=== PATIENT | female | born 1975 | race African-American/Black ===

== ENCOUNTER 2016-12-01 04:48 | Inpatient (IN) | payer OTHER ==
[~2016-12-01] VITALS: Ht 167.6 cm; Wt 55.0 kg
--- NOTE | ~2016-12-01 | EKG ---
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: [id number] : 1975 Requested By: Jacey Pacheco Order Number: [id number] MD: Venkat Bassett Measurements Intervals [place] Rate: 115 P: 80 DC: 173 QRS: 77 QRSD: 71 T: 23 QT: 328 QTc: 454 Interpretive Statements Sinus tachycardia Right atrial enlargement Compared to ECG 04/07/2016 17:50:54 Atrial abnormality now present ST (T wave) deviation no longer present Prolonged QT interval no longer present Electronically Signed On 12-01-2016 17:56:24 CDT by Venkat Bassett [email or web address] <ELECTRONICALLY SIGNED> By: Venkat Bassett MD 12/01/16 1756 4 4 Venkat Bassett MD /EPI
--- NOTE | ~2016-12-01 | S ---
[facility] [place] [address] SURGICAL PATH RPT PROCEDURE Name: MASSILE PONCE Room #: 423-1 ADM IN M.R.#: [id number] Admission: 12/04/16 Date of : 77 Discharge: Report #: [id number] Path Case #: [id number] PATHOLOGY REPORT COLLECTION DATE: 12/03/2016 RECEIVED DATE: 12/03/2016 SUBMITTING PHYS: Dr. Babs Hawkins OTHER PHYS: Dr. Alex Meier SPECIMEN(S) RECEIVED: A.Random gastritis bx B.Focal bx of gastritis in fundus * * * * * * * * * * * * FINAL DIAGNOSIS: A. Gastric biopsy "random gastritis biopsy": - Mild chronic reactive gastropathy with mild chronic inflammation. - There is no evidence of acute cryptitis, granulomas, adenomatous change or malignancy. - The immunoperoxidase stain for Helicobacter pylori is negative. B. Gastric biopsy "focal biopsy of gastritis": - Mild chronic reactive gastropathy with focal mild chronic inflammation. - There is no evidence of acute cryptitis, granulomas, adenomatous change or malignancy. - The immunoperoxidase stain for Helicobacter pylori is negative. PATHOLOGIST: Guido Perez M.D. REPORT ELECTRONICALLY SIGNED BY: Guido Perez M.D. DATE/TIME: 12/05/2016 13:04 * * * * * * * * * * * * GROSS PATHOLOGY: A. Received in formalin labeled "Massiel Ponce, random gastric biopsies R/O H. pylori," are three segments of white soft tissue measuring 0.8 x 0.7 x 0.1 cm in aggregate dimensions and ranging from 0.4 to 0.5 cm in maximum dimension. The specimen is submitted entirely in cassette A1. B. Received in formalin labeled "Massiel Ponce, focal biopsy gastritis infectious," are two segments of white soft tissue measuring 0.4 x 0.4 x 0.1 cm in aggregate dimensions and ranging from 0.3 to 0.4 cm in maximum dimension. The specimen is submitted entirely in cassette B1. (CAA; 12/04/2016) [address] [address] SURGICAL PATH RPT PROCEDURE Name: MASSIEL PONCE Room #: 423-1 ADM IN .R.#: [id number] Admission: 12/04/16 Date of : 77 Discharge: Report #: [id number] Path Case #: [id number] CLINICAL HISTORY: Odynophagia INITIAL CPT CODE(S): A; 22601, 33263 B; 90937, 45668 Professional services performed by [facility] at [address] , [place] [address] Technical services performed by [facility] at [address] [place] [address], [address] [address]. [facility] [address] [address] PHONE: [phone] DIRECTOR: Alex Sanchez M.D. * * * END OF REPORT * * *
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
[~2016-12-01 04:48] MED LIST: ALLEGRA60 MG; APAP/CODEI12 MG/5 M1; CLEOCIN HCL150 MG PO; COLACE 100 MG100 MG; HYDROCODONE-AP1 EAC6 PO; IBUPROFEN 800800 M1; IRON325 PO; IROSPAN 24/6 T1 EACH; LORTAB 5 MG/5001 TA1 PO; NAPROSYN500 MG PO; NOHOMEMEDICATIONS; NORCO 5-325 TA1 EACH PO; PROGESTERONE100 MG PO; TRINATE TABLET1 TAB PO; ULTRAM 50MG TAB50 MG PO; ZOFRAN4 MG PO; ZPAK
[2016-12-01 04:55] VITALS: BP 118/76
[2016-12-01] MEDS ORDERED: ALLEGRA ALLERGY60 MG PO (05:30)
[2016-12-01] MEDS ORDERED: ZYRTEC10 M5 PO (05:31)
[2016-12-01 06:09] LABS: BASOPHILS 0.5 % (0.0-2.0); HEMATOCRIT 42.3 % (37.0-47.0); HEMOGLOBIN 13.8 gm/dL (12.0-15.0); LYMPHOCYTES 12.7 % (24.0-44.0); MCH 33.3 pg (26.0-34.0); MCHC 32.5 g/dL (28.0-37.0); MCV 102.5 fL (80.0-100.0); MONOCYTES 8.4 % (1.0-8.0); PLATELET COUNT 270 thou/uL (150-400); POLYS 78.4 % (36.0-66.0); RBC 4.13 mil/uL (4.20-5.00); WBC 8.9 thou/uL (4.0-11.0)
[2016-12-01 06:10] LABS: CALCIUM 9.7 mg/dL (8.5-10.1); CREATININE 0.8 mg/dL (0.6-1.0); POTASSIUM 5.3 mmol/L (3.5-5.1)
[2016-12-01 06:20] LABS: MANUAL DIFF NO
[2016-12-01 08:48] LABS: ABG SAMPLE TYPE ARTERIAL; BE(vivo) -19.5 mmol/L (-2 to +3); HCO3 6.4 mmol/L (22.0-26.0); O2(CT) 19.1 mL/dL (15.0-23.0); O2Hb 97.1 % (92.0-98.0); PO2 123.6 mmHg (80.0-100.0); sO2 97.8 % (92.0-98.0); tCO2 6.9 mmol/L (24.0-30.0)
[2016-12-01 08:49] LABS: LACTATE 9.58 mmol/L (0.5-2.0); PCO2 17.1 mmHg (35.0-45.0); STICK SITE R.RADIAL; pH 7.189 (7.360-7.450)
[2016-12-01 10:01] VITALS: BP 106/73
[2016-12-01 10:05] VITALS: BP 139/90
[2016-12-01 14:40] LABS: ABG SAMPLE TYPE ARTERIAL; BE(vivo) -8.4 mmol/L (-2 to +3); HCO3 15.3 mmol/L (22.0-26.0); O2(CT) 18.2 mL/dL (15.0-23.0); O2Hb 96.6 % (92.0-98.0); PCO2 27.3 mmHg (35.0-45.0); pH 7.367 (7.360-7.450); sO2 97.3 % (92.0-98.0); tCO2 16.2 mmol/L (24.0-30.0)
[2016-12-01 14:41] LABS: ABG COMMENT NO COMPLICATIONS; STICK SITE L.RADIAL
[2016-12-01 16:27] VITALS: BP 112/73
[2016-12-01 20:00] VITALS: BP 124/87
[2016-12-02 03:32] LABS: URINE BILIRUBIN 2+ (Negative); URINE BLOOD 3+ (Negative); URINE COLOR YELLOW; URINE GLUCOSE-RANDOM* NEGATIVE (Negative); URINE KETONES 2+ (Negative); URINE NITRITE NEGATIVE (Negative); URINE PROTEIN (DIPSTICK) 2+ (Negative); URINE SPECIFIC GRAVITY 1.025 (1.003-1.035); URINE UROBILINOGEN 0.2 E.U./dl (0.2-1.0)
[2016-12-02 03:34] LABS: ICTOTEST (BILI CONFIRMATORY) Positive (Negative)
[2016-12-02 03:43] LABS: AMP/METHAMP Negative (Negative); BARBITURATES Negative (Negative); BENZODIAZEPINES Negative (Negative); COCAINE Negative (Negative); METHADONE Negative (Negative); OPIATES POSITIVE (Negative); PCP Negative (Negative); THC Negative (Negative)
[2016-12-02 03:46] LABS: CASTS None Seen /LPF (None Seen); SQUAMOUS >10 Many /LPF (0-3)
[2016-12-02 03:47] LABS: URINE RBC 3-10 Few /HPF (0-2); URINE WBC 0-5 Rare /HPF (0-5)
[2016-12-02 03:48] LABS: BACTERIA 1-9 Few /HPF (None Seen); CRYSTALS None Seen /LPF (None Seen)
[2016-12-02 04:11] LABS: GLYCOHEMOGLOBIN (HGB A1C) 4.7 % (4.8-5.6)
[2016-12-02 07:40] VITALS: BP 132/96
[2016-12-02 10:44] LABS: ALBUMIN 3.5 g/dL (3.4-5.0); CALCIUM 8.4 mg/dL (8.5-10.1); CREATININE 0.6 mg/dL (0.6-1.0); POTASSIUM 3.3 mmol/L (3.5-5.1); TOTAL BILIRUBIN 1.1 mg/dL (<0.1-1.0); TOTAL PROTEIN 7.3 g/dL (6.4-8.2)
[2016-12-02 15:43] VITALS: BP 129/93
[2016-12-02 20:00] VITALS: BP 132/98
[2016-12-03 04:31] VITALS: BP 113/87
[2016-12-03 05:50] LABS: HEMATOCRIT 33.3 % (37.0-47.0); MCH 32.9 pg (26.0-34.0); MCHC 33.8 g/dL (28.0-37.0); RBC 3.43 mil/uL (4.20-5.00); RDW 13.6 % (10.5-14.5); WBC 4.6 thou/uL (4.0-11.0)
[2016-12-03 06:12] LABS: CREATININE 0.7 mg/dL (0.6-1.0); HEMOGLOBIN 11.3 gm/dL (12.0-15.0); MCV 97.2 fL (80.0-100.0); TOTAL BILIRUBIN 1.2 mg/dL (<0.1-1.0); TOTAL PROTEIN 6.6 g/dL (6.4-8.2)
[2016-12-03 06:20] LABS: POTASSIUM 2.6 mmol/L (3.5-5.1)
[2016-12-03 08:11] VITALS: BP 109/78
[2016-12-03 10:09] LABS: C-PEPTIDE 0.7 ng/mL (1.1-4.4); CORTISOL AM 12.3 ug/dL (6.2-19.4); INSULIN 7.4 uIU/mL (2.6-24.9)
[2016-12-03 15:51] VITALS: BP 129/93
[2016-12-03 17:10] LABS: HEPATITIS C VIRUS AB 0.2 (0.0-0.9)
[2016-12-03 19:22] VITALS: BP 130/94
[2016-12-04 04:25] VITALS: BP 116/87
[2016-12-04 06:32] LABS: ALBUMIN 2.6 g/dL (3.4-5.0); DIRECT BILIRUBIN 0.4 mg/dL (<0.1-0.3); TOTAL BILIRUBIN 1.1 mg/dL (<0.1-1.0)
[2016-12-04 08:28] VITALS: BP 105/75
[2016-12-04 09:19] LABS: HEMATOCRIT 29.9 % (37.0-47.0); MCHC 33.3 g/dL (28.0-37.0); MCV 98.9 fL (80.0-100.0); RBC 3.02 mil/uL (4.20-5.00); RDW 13.6 % (10.5-14.5); WBC 3.4 thou/uL (4.0-11.0)
[2016-12-04 09:30] LABS: ALBUMIN 2.7 g/dL (3.4-5.0); CALCIUM 7.8 mg/dL (8.5-10.1); CREATININE 0.6 mg/dL (0.6-1.0); POTASSIUM 3.2 mmol/L (3.5-5.1)
[2016-12-04 15:50] VITALS: BP 135/100
[2016-12-04 20:00] VITALS: BP 124/87
[2016-12-05 03:52] LABS: HEMATOCRIT 27.6 % (37.0-47.0); HEMOGLOBIN 9.4 gm/dL (12.0-15.0); MCHC 34.2 g/dL (28.0-37.0); MCV 96.5 fL (80.0-100.0); RBC 2.86 mil/uL (4.20-5.00); RDW 13.5 % (10.5-14.5); WBC 3.2 thou/uL (4.0-11.0)
[2016-12-05 04:06] LABS: ALBUMIN 2.5 g/dL (3.4-5.0); ALKALINE PHOSPHATASE 100 U/L (46-116); ANION GAP 6 mmol/L (7-16); BUN < 1 mg/dL (7-18); CALCIUM 7.7 mg/dL (8.5-10.1); CHLORIDE 106 mmol/L (98-107); CO2 27 mmol/L (21-32); CREATININE 0.6 mg/dL (0.6-1.0); GLUCOSE 105 mg/dL (74-106); SGOT 173 U/L (15-37); SGPT 74 U/L (30-65); SODIUM 139 mmol/L (136-145); TOTAL PROTEIN 5.7 g/dL (6.4-8.2)
[2016-12-05 04:22] LABS: POTASSIUM 2.6 mmol/L (3.5-5.1)
[2016-12-05 05:00] VITALS: BP 128/92
[2016-12-05 07:38] VITALS: BP 105/71
[2016-12-05 20:00] VITALS: BP 140/105
[2016-12-06 00:32] VITALS: BP 127/92
[2016-12-06 04:36] VITALS: BP 112/68
[2016-12-06 05:19] LABS: HEMATOCRIT 27.9 % (37.0-47.0); HEMOGLOBIN 9.6 gm/dL (12.0-15.0); MCH 33.1 pg (26.0-34.0); MCHC 34.4 g/dL (28.0-37.0); MCV 96.1 fL (80.0-100.0); RBC 2.9 mil/uL (4.20-5.00); RDW 13.5 % (10.5-14.5); WBC 3.5 thou/uL (4.0-11.0)
[2016-12-06 05:34] LABS: ALBUMIN 2.6 g/dL (3.4-5.0); CALCIUM 7.6 mg/dL (8.5-10.1); CREATININE 0.6 mg/dL (0.6-1.0); TOTAL BILIRUBIN 0.6 mg/dL (<0.1-1.0); TOTAL PROTEIN 5.9 g/dL (6.4-8.2)
[2016-12-06 08:00] VITALS: BP 131/96
[2016-12-06 17:54] VITALS: BP 125/95
[2016-12-06 18:50] LABS: MAGNESIUM 1.1 mg/dL (1.8-2.4); POTASSIUM 3.6 mmol/L (3.5-5.1)
[2016-12-06 19:57] VITALS: BP 120/81
[2016-12-07 07:41] LABS: HEMATOCRIT 27.6 % (37.0-47.0); HEMOGLOBIN 9.3 gm/dL (12.0-15.0); MCH 33.2 pg (26.0-34.0); MCHC 33.8 g/dL (28.0-37.0); MCV 98.2 fL (80.0-100.0); PLATELET COUNT 171 thou/uL (150-400); RBC 2.81 mil/uL (4.20-5.00); RDW 13.8 % (10.5-14.5); WBC 3.8 thou/uL (4.0-11.0)
[2016-12-07 07:44] LABS: MANUAL DIFF YES
[2016-12-07 07:57] LABS: ALBUMIN 2.5 g/dL (3.4-5.0); CALCIUM 8.1 mg/dL (8.5-10.1); CREATININE 0.6 mg/dL (0.6-1.0); POTASSIUM 3.5 mmol/L (3.5-5.1); TOTAL BILIRUBIN 0.5 mg/dL (<0.1-1.0); TOTAL PROTEIN 5.7 g/dL (6.4-8.2)
[2016-12-07 08:00] VITALS: BP 108/56
[2016-12-07 08:05] LABS: ABSOLUTE NEUTROPHILS 2.5 thou/uL (1.4-8.2); PLATELET ESTIMATE NORMAL; TOTAL CELL COUNT 100
[2016-12-07 17:50] VITALS: BP 149/100
[2016-12-07 19:59] VITALS: BP 112/85
[2016-12-08 04:48] VITALS: BP 115/83
[2016-12-08 05:13] VITALS: BP 126/65
[2016-12-08 05:13] LABS: ALBUMIN 2.5 g/dL (3.4-5.0); CREATININE 0.6 mg/dL (0.6-1.0); POTASSIUM 3.4 mmol/L (3.5-5.1); TOTAL BILIRUBIN 0.4 mg/dL (<0.1-1.0); TOTAL PROTEIN 5.9 g/dL (6.4-8.2)
[2016-12-08 08:47] VITALS: BP 136/93
[2016-12-08] MEDS ORDERED: PANTOPRAZOLE SO40 M1 PO (09:18)
[2016-12-08] MEDS ORDERED: HYDROCODONE-AP1 EAC6 PO (09:18)
[2016-12-08] MEDS ORDERED: VITAMIN B-1100 M2 PO (09:19)
[2016-12-08] MEDS ORDERED: FOLIC ACID 1 MG1 MG PO (09:19)
[2016-12-08 11:21] VITALS: BP 136/93
== END 2016-12-08 12:28 | disposition home or self-care (01) | DRG 377 ==
LOC: ER 04:48 → EROBS 08:48 → 4E 08:48
PROVIDERS: Emergency Medicine; Family Medicine; Hospitalist; Internal Medicine; Internal Medicine Endocrinology, Diabetes & Metabolism; Internal Medicine Gastroenterology; Nurse Practitioner; Nurse Practitioner Adult Health
PROC: 0DB68ZX Excision of Stomach, Via Natural or Artificial Opening Endoscopic, Diagnostic (ICD-10-PCS; principal; 2016-12-03)
DX: K29.71 Gastritis, unspecified, with bleeding (principal); K85.90 Acute pancreatitis without necrosis or infection, unspecified; G93.40 Encephalopathy, unspecified; K22.10 Ulcer of esophagus without bleeding; E87.2 Acidosis; R16.0 Hepatomegaly, not elsewhere classified; E16.2 Hypoglycemia, unspecified; E87.6 Hypokalemia; E83.42 Hypomagnesemia; D25.9 Leiomyoma of uterus, unspecified; F10.10 Alcohol abuse, uncomplicated; R07.9 Chest pain, unspecified; R79.89 Other specified abnormal findings of blood chemistry; K76.0 Fatty (change of) liver, not elsewhere classified; R13.10 Dysphagia, unspecified; Y90.0 Blood alcohol level of less than 20 mg/100 ml; Z79.899 Other long term (current) drug therapy; Z88.8 Allergy status to other drugs, medicaments and biological substances; Z80.3 Family history of malignant neoplasm of breast
CPT/HCPCS: 10183; 62110; 62900; 70005

== ENCOUNTER 2017-09-02 13:34 | Inpatient (IN) | payer OTHER ==
[2017-09-02] VITALS (9 sets, daily range): BP systolic 98–143; BP diastolic 57–101
[~2017-09-02] VITALS: Ht 165.1 cm; Wt 54.9 kg
--- NOTE | ~2017-09-02 | EKG ---
[address] [address] ELECTROCARDIOGRAM REPORT Name: MASSIEL DOMINGUEZ Room #: 437-P [facility] IN ..#: [id number] Admission: 09/02/17 Attend Phys: Balbir Merlos MD Discharge: 09/06/17 Date of : 77 Report #: [id number] THIS REPORT FOR: //name// [facility] Test Date: 2017-09-03 Test Time: 01:38:11 Pat Name: MASSIEL DOMINGUEZ Department: Room: [facility] Gender: F Neuropsychology Service Director: [email or web address] : 1975 Requested By: Teresa Bazan Order Number: [id number] MD: Stu Martinez Measurements Intervals [place] Rate: 117 P: 88 CA: 153 QRS: 75 QRSD: 71 T: 72 QT: 336 QTc: 469 Interpretive Statements Sinus tachycardia Probable anteroseptal infarct, old Prolonged QT interval Compared to ECG 12/01/2016 06:05:36 No significant change was found Electronically Signed On 09-06-2017 13:13:35 CDT by Stu Martinez [email or web address] <ELECTRONICALLY SIGNED> By: Stu Martinez MD, [facility] 09/06/17 1313 0138 0138 Stu Martinez MD, [facility] /EPI
--- NOTE | ~2017-09-02 | EKG ---
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 : 1975 Requested By: Scott Hollingsworth Order Number: [id number] MD: Stu Martinez Measurements Intervals [place] Rate: 100 P: 88 DC: 194 QRS: 73 QRSD: 81 T: 16 QT: 392 QTc: 506 Interpretive Statements Sinus tachycardia Anteroseptal infarct, old Nonspecific ST segment abnormality Compared to ECG 12/01/2016 06:05:36 no significant change was found Electronically Signed On 09-06-2017 13:05:03 CDT by Stu Martinez [email or web address] <ELECTRONICALLY SIGNED> By: Stu Martinez MD, [facility] 09/06/17 1305 1457 1457 Stu Martinez MD, [facility] /EPI
[~2017-09-02 13:34] MED LIST changes: +ALLEGRA ALLERGY60 MG PO; +FOLIC ACID 1 MG1 MG PO; +PANTOPRAZOLE SO40 M1 PO; +VITAMIN B-1100 M2 PO; +ZYRTEC10 M5 PO
[2017-09-02 14:19] LABS: URINE BILIRUBIN NEGATIVE (Negative); URINE BLOOD 3+ (Negative); URINE CLARITY CLEAR; URINE COLOR YELLOW; URINE GLUCOSE-RANDOM* NEGATIVE (Negative); URINE KETONES 2+ (Negative); URINE LEUKOCYTES-REFLEX NEGATIVE (Negative); URINE NITRITE-REFLEX NEGATIVE (Negative); URINE PROTEIN (DIPSTICK) 1+ (Negative); URINE SPECIFIC GRAVITY 1.025 (1.005-1.035); URINE UROBILINOGEN 0.2 E.U./dl (0.2-1.0)
[2017-09-02 14:25] LABS: AMP/METHAMP Negative (Negative); BARBITURATES Negative (Negative); BENZODIAZEPINES Negative (Negative); COCAINE Negative (Negative); METHADONE Negative (Negative); OPIATES Negative (Negative); PCP Negative (Negative)
[2017-09-02 14:34] LABS: CASTS None Seen /LPF (None Seen); CRYSTALS None Seen /LPF (None Seen); SQUAMOUS >10 Many /LPF (0-3)
[2017-09-02 14:35] LABS: URINE WBC-REFLEX 0-5 Rare /HPF (0-5)
[2017-09-02 14:36] LABS: BACTERIA-REFLEX 1-9 Few /HPF (None Seen); URINE RBC 3-10 Few /HPF (0-2)
[2017-09-02 14:57] LABS: HEMOGLOBIN 12.5 gm/dL (12.0-15.0); MCH 32.8 pg (26.0-34.0); MCHC 29.1 g/dL (28.0-37.0); MCV 112.9 fL (80.0-100.0); PLATELET COUNT 233 thou/uL (150-400); RBC 3.81 mil/uL (4.20-5.00); RDW 15.3 % (10.5-14.5); WBC 15.2 thou/uL (4.0-11.0)
[2017-09-02 15:09] LABS: CALCIUM 8.2 mg/dL (8.5-10.1); CREATININE 0.8 mg/dL (0.6-1.0); POTASSIUM 4.4 mmol/L (3.5-5.1)
[2017-09-02 15:15] LABS: ALBUMIN 3.8 g/dL (3.4-5.0); TOTAL BILIRUBIN 0.4 mg/dL (<0.1-1.0); TOTAL PROTEIN 8.9 g/dL (6.4-8.2)
[2017-09-02 15:28] LABS: ABSOLUTE NEUTROPHILS 11.1 thou/uL (1.4-8.2)
[2017-09-02 15:29] LABS: MACROCYTES 2+
[2017-09-02 15:59] LABS: BE(vivo) -31.8 mmol/L (-2 to +3); HCO3 3.7 mmol/L (22.0-26.0); PCO2 VENOUS 28.2 mmHg (41.0-51.0); PO2 VENOUS 64.2 mmHg (35.0-45.0)
[2017-09-02 20:17] LABS: INR 1.2
[2017-09-02 20:29] LABS: PHOSPHORUS 7.8 mg/dL (2.5-4.9)
[2017-09-02 20:55] LABS: FOLIC ACID 6.5 ng/mL (8.6-58.9)
[2017-09-02 21:42] LABS: AMYLASE 156 U/L (25-115); LIPASE 177 U/L (73-393)
[2017-09-03] VITALS (17 sets, daily range): BP systolic 88–107; BP diastolic 67–83
[2017-09-03 04:07] LABS: HEMOGLOBIN 9.7 gm/dL (12.0-15.0); MCH 34.2 pg (26.0-34.0); MCHC 33.5 g/dL (28.0-37.0); MCV 102.1 fL (80.0-100.0); RBC 2.84 mil/uL (4.20-5.00); RDW 13.6 % (10.5-14.5); WBC 6.2 thou/uL (4.0-11.0)
[2017-09-03 04:16] LABS: CALCIUM 6.6 mg/dL (8.5-10.1); CREATININE 0.7 mg/dL (0.6-1.0); PHOSPHORUS 1.9 mg/dL (2.5-4.9)
[2017-09-03 04:22] LABS: POTASSIUM 6.2 mmol/L (3.5-5.1)
[2017-09-03 06:01] LABS: HEMATOCRIT 28.8 % (37.0-47.0); HEMOGLOBIN 9.5 gm/dL (12.0-15.0); MCH 33.3 pg (26.0-34.0); MCHC 33.1 g/dL (28.0-37.0); MCV 100.7 fL (80.0-100.0); RBC 2.86 mil/uL (4.20-5.00); RDW 13.5 % (10.5-14.5); WBC 5.3 thou/uL (4.0-11.0)
[2017-09-03 06:16] LABS: ALBUMIN 2.8 g/dL (3.4-5.0); CALCIUM 6.9 mg/dL (8.5-10.1); CREATININE 0.6 mg/dL (0.6-1.0); PHOSPHORUS 1.9 mg/dL (2.5-4.9); TOTAL BILIRUBIN 0.7 mg/dL (<0.1-1.0); TOTAL PROTEIN 6.3 g/dL (6.4-8.2)
[2017-09-03 06:25] LABS: POTASSIUM 4.5 mmol/L (3.5-5.1)
[2017-09-03 06:27] LABS: MAGNESIUM 0.9 mg/dL (1.8-2.4)
[2017-09-04 06:53] LABS: CALCIUM 8.5 mg/dL (8.5-10.1); CREATININE 0.6 mg/dL (0.6-1.0); MAGNESIUM 2.3 mg/dL (1.8-2.4); POTASSIUM 3.3 mmol/L (3.5-5.1)
[2017-09-04 07:02] LABS: ALBUMIN 3.1 g/dL (3.4-5.0); DIRECT BILIRUBIN 0.3 mg/dL (<0.1-0.3); TOTAL BILIRUBIN 0.6 mg/dL (<0.1-1.0); TOTAL PROTEIN 6.9 g/dL (6.4-8.2)
[2017-09-04 08:55] VITALS: BP 123/90
[2017-09-04 18:58] VITALS: BP 130/92
[2017-09-05 04:01] VITALS: BP 118/83
[2017-09-05 08:03] VITALS: BP 123/94
[2017-09-05 15:49] VITALS: BP 108/84
[2017-09-05 19:27] VITALS: BP 112/96
[2017-09-06 04:08] VITALS: BP 102/84
[2017-09-06 05:28] LABS: HEMATOCRIT 32.3 % (37.0-47.0); HEMOGLOBIN 10.8 gm/dL (12.0-15.0); MCH 33.2 pg (26.0-34.0); MCHC 33.5 g/dL (28.0-37.0); MCV 99.1 fL (80.0-100.0); RBC 3.26 mil/uL (4.20-5.00); RDW 13.4 % (10.5-14.5); WBC 2.6 thou/uL (4.0-11.0)
[2017-09-06 05:44] LABS: ALBUMIN 2.7 g/dL (3.4-5.0); CALCIUM 8.7 mg/dL (8.5-10.1); CREATININE 0.6 mg/dL (0.6-1.0); POTASSIUM 3.4 mmol/L (3.5-5.1); TOTAL BILIRUBIN 0.8 mg/dL (<0.1-1.0); TOTAL PROTEIN 6.6 g/dL (6.4-8.2)
[2017-09-06 08:31] VITALS: BP 108/87
[2017-09-06 10:05] VITALS: BP 108/87
== END 2017-09-06 10:50 | disposition home or self-care (01) | DRG 552 ==
LOC: ER 13:34 → EROBS 15:43 → ICU 17:51 → 4S 09-04 17:39
PROVIDERS: Emergency Medicine; Hospitalist; Nurse Practitioner; Nurse Practitioner Family
DX: M51.27 Other intervertebral disc displacement, lumbosacral region (principal); E87.2 Acidosis; K86.0 Alcohol-induced chronic pancreatitis; E16.2 Hypoglycemia, unspecified; R00.0 Tachycardia, unspecified; F41.9 Anxiety disorder, unspecified; D69.6 Thrombocytopenia, unspecified; F10.10 Alcohol abuse, uncomplicated; K76.0 Fatty (change of) liver, not elsewhere classified; Z71.41 Alcohol abuse counseling and surveillance of alcoholic; Z87.828 Personal history of other (healed) physical injury and trauma; Z88.8 Allergy status to other drugs, medicaments and biological substances
CPT/HCPCS: 10100; 10203